=== PATIENT | male | born 1955 | race Caucasian/White ===

== ENCOUNTER → 2021-07-16 10:10 | Outpatient (CLI) | payer MEDICARE, SELFPAY ==
--- NOTE | ~2021-07-16 | XR_ITS ---
XR lumbar spine 2-3V DATE: 07/16/2021 10:46 INDICATION: Low back pain TECHNIQUE: AP, lateral, coned lateral lumbosacral views COMPARISON: 03/12/2014 lumbar spine FINDINGS: Diffuse idiopathic skeletal hyperostosis of the thoracic spine. There is moderate degenerative disc disease with mild retrolisthesis at T12-L1. Moderate degenerative disc disease at L1-2. There is moderately severe degenerative disc disease at L2-3. There is mild degenerative disc disease at L3-4 and L4-5. There is degenerative change at the apophyseal joints with associated grade 1 anterolisthesis at L4-5 . No fracture or bone destruction of the lumbar spine is noted. The lumbar pedicles are intact. The sacroiliac joints are intact, with degenerative change. IMPRESSION: Degenerative changes of thoracic and lumbar spine Reviewed, dictated and finalized at location A. ARTIST
== END ==
PROVIDERS: PCP Family Medicine; Visit Provider Family Medicine
DX: M54.50 Low back pain, unspecified (principal)
CPT/HCPCS: 72100

== ENCOUNTER → 2022-04-04 13:00 | Outpatient (CLI) | payer MEDICARE, SELFPAY ==
--- NOTE | ~2022-04-04 | XR_ITS ---
EXAMINATION: XR ribs RT 2V w CXR 2V DATE: 04/04/2022 13:29 INDICATION: Fall TECHNIQUE: PA and lateral views of the chest and 3 views of the right ribs were obtained. COMPARISON: Chest radiograph dated 12/16/2018 FINDINGS: No rib fractures identified. Unchanged mild linear lingular atelectasis/scarring at the costophrenic angle at the left lung base. No other airspace opacities, pulmonary edema, pleural effusion or pneumo thorax. Cardiomediastinal silhouette is normal. There are bridging osteophytes at multiple levels in the spine, consistent with diffuse idiopathic skeletal hyperostosis (DISH). IMPRESSION: 1. No rib fracture or acute cardiopulmonary disease. Reviewed, dictated and finalized at location A.
--- NOTE | ~2022-04-04 | XR_ITS ---
XR shoulder RT min 2V 04/04/2022 13:29 Indication: Right shoulder pain after fall Procedure: 4 views right shoulder Comparison: No prior studies for comparison. Findings: No fracture, subluxation or dislocation. No significant soft tissue abnormality. Abnormalit y. There is mild osteoarthritis of the acromioclavicular joint. Impression: 1: No acute fracture. Reviewed, dictated and finalized at location A. Impression: 1: No acute fracture.
== END ==
PROVIDERS: PCP Family Medicine; Visit Provider Nurse Practitioner Family
DX: R07.81 Pleurodynia (principal); M25.511 Pain in right shoulder; W19.XXXA Unspecified fall, initial encounter
CPT/HCPCS: 71046; 71100; 73030

== ENCOUNTER 2023-04-17 10:12 | Outpatient (CLI) | payer MEDICARE, SELFPAY ==
--- NOTE | ~2023-04-17 | XR_ITS ---
EXAMINATION: XR wrist LT min 3V DATE: 04/17/2023 10:31 INDICATION: Left wrist pain and swelling. TECHNIQUE: 4 views of left wrist were obtained. COMPARISON: None. FINDINGS: There is palmar tilt of lunate, consistent with volar intercalated segmental instability (V LEXY). No fracture. There is moderate osteoarthritis of triscaphe joint and severe osteoarthritis of l unate-capitate joint, lunate-hamate joint, and first carpometacarpal joint. IMPRESSION: 1. Polyarticular osteoarthritis. Reviewed, dictated and finalized at location A.
== END 2023-04-17 10:13 | disposition home or self-care (01) ==
PROVIDERS: PCP Family Medicine; Visit Provider Physician Assistant
DX: M25.532 Pain in left wrist (principal); M15.9 Polyosteoarthritis, unspecified; Z87.39 Personal history of other diseases of the musculoskeletal system and connective tissue
CPT/HCPCS: 73110

== ENCOUNTER 2024-01-01 08:48 | Day surgery (SDC) | payer MEDICARE, SELFPAY ==
[2023-12-17 15:13] VITALS: BMI 38.1
[2024-01-01 09:13] VITALS: BP 140/83; PULSE 96; RESP 18; TEMP 36.4; O2SAT 94; BMI 37.4
[2024-01-01] MEDS: LACTATED RINGERS 1,000 ML 150 ML IV CONT (09:43)
--- NOTE | 2024-01-01 10:04 | PM.HPGS ---
History of Present Illness History of Present Illness Consent: Risks, benefits, and alternatives have been discussed and questions answered. Patient agrees to proceed with procedure. Chief complaint: History of Colon Polyps Narrative: Maximo Barajas Jr. is a 68 year old male presents for screening colonoscopy. Patient has a very distant history of colon polyps. Colonoscopy 7 years ago was unremarkable. Patient presents today for follow-up exam. Patient reports his current weight appetite bowel movements are normal. He has had no bleeding. Family history noncontributory. Review of Systems Review of Systems: All systems reviewed & are unremarkable except as noted in HPI and below PMFSH Past Medical History Medical History (Updated 01/01/24 @ 10:06 by Cuba Aiken MD) BPH loc w urin obs/LUTS Gout History of stress test Left sided sciatica Surgical History Surgical History History of hernia repair History of knee surgery Family History Family History Father Acute myocardial infarction Other Family history of cardiovascular disease Social History Social History Smoking status: Never smoker Second hand tobacco smoke exposure: No Alcohol intake: current Drinks per week: 6 Substance use: never Substance use type: does not use Lack of Transportation: No Lack of Food: Never True Current Housing: I Have Housing Concerned About Future Housing: No Difficulty Paying Gas/Electric Bills: No Difficulty Paying for Meds: No Currently Unemployed: No Education: Trade/Vocational Certificate Difficulty w/ Childcare or Family Care: No Living arrangements: with family Occupation/Education: retired Gender identity (if verbalized by the patient): Male Sexual Orientation (if Verbalized by the Patient): Straight or Heterosexual Spiritual care concerns: No Meds Home Medications and Allergies Home Medications Medication Instructions Recorded Confirmed Type terbinafine HCl 250 mg tablet 250 mg PO DAILY #7 tabs 07/02/23 01/01/24 Rx warfarin 10 mg tablet 10 mg PO DAILY #90 tabs 07/31/23 01/01/24 Rx nystatin 100,000 unit/gram topical 1 applic topical TID #30 grams 08/14/23 01/01/24 Rx powder tadalafil 20 mg tablet (Cialis) 20 mg PO DAILY PRN sexual activity 12/01/23 01/01/24 Rx #30 tabs tamsulosin 0.4 mg capsule 0.8 mg PO DAILY #180 caps 12/01/23 01/01/24 Rx Vitamin B-6 1 tab-cap PO DIRECTED 12/18/23 01/01/24 History Allergies Allergy/AdvReac Type Severity Reaction Status Date / Time codeine Allergy Unknown Unknown Verified 01/01/24 09:12 Penicillins Allergy Unknown Unknown Verified 01/01/24 09:12 Vital Signs Vital Signs - 24 hr 01/01/24 09:13 Temperature 97.6 F Pulse Rate 96 Respiratory Rate 18 Blood Pressure 140/83 Pulse Oximetry 94 Oxygen Delivery Room Air Exam Narrative: Physical exam reveals patient alert. Vital signs stable. HEENT exam is unremarkable. Patient is anicteric. Lungs are clear to auscultation and to percussion is without murmur or extra sounds. Abdomen bowel sounds are present soft nontender with no organomegaly. Digital external rectal exam normal. Assessment and Plan Assessment and plan (1) Screen for colon cancer: Code(s): Z12.11 - Encounter for screening for malignant neoplasm of colon Status: Acute Assessment and Plan: Patient presents for screening colonoscopy. He has a very distant history of colon polyps. Further recommendations may be given after endoscopy.
[2024-01-01 10:25] VITALS: BP 107/67; PULSE 69; RESP 12; O2SAT 95
[2024-01-01 10:36] VITALS: BP 111/68; PULSE 76; RESP 12; O2SAT 99
[2024-01-01 10:49] VITALS: BP 117/80; PULSE 67; RESP 14; O2SAT 97
--- NOTE | 2024-01-01 10:53 | WPDANESPN ---
Anes - Prog Note Post-Op Date/Time: 01/01/24 10:53 Cardiovascular status: normal Respiratory status: normal Airway patency: baseline Mental status: baseline Post-Op hydration status: normal Vital Signs: Last Vital Signs Temp 36.4 C 01/01/24 09:13 Pulse 67 01/01/24 10:49 Resp 14 01/01/24 10:49 BP 117/80 01/01/24 10:49 Pulse Ox 97 01/01/24 10:49 O2 Del Method Room Air 01/01/24 10:49 Pain Score (VAS): 0/10 I/O: Intake & Output 12/31/23 01/01/24 01/01/24 23:59 07:59 15:59 Intake Total 0 Balance 0 Patient Feedback: Patient satisfied with anesthetic care.
--- NOTE | 2024-01-01 11:19 | WPDANESEPPF ---
Anes - Initial Pre Proc Eval Procedure: Operation Date: 01/01/24 10:30 Proposed Procedures p Diagnostic Colonoscopy - Cuba Aiken MD Date/Time: 01/01/24 11:19 Surgeon: Cuba Aiken MD Pre Op Diagnosis: History of Colon Polyps Patient Data Age: 68 Gender: M Height: 1.83 m Weight: 125.1 kg Last Vital Signs Temp 36.4 C 01/01/24 09:13 Pulse 67 01/01/24 10:49 Resp 14 01/01/24 10:49 BP 117/80 01/01/24 10:49 Pulse Ox 97 01/01/24 10:49 O2 Del Method Room Air 01/01/24 10:49 Allergies Allergy/AdvReac Type Severity Reaction Status Date / Time codeine Allergy Unknown Unknown Verified 01/01/24 09:12 Penicillins Allergy Unknown Unknown Verified 01/01/24 09:12 Home Medications Medication Instructions Recorded Confirmed Type terbinafine HCl 250 mg tablet 250 mg PO DAILY #7 tabs 07/02/23 01/01/24 Rx warfarin 10 mg tablet 10 mg PO DAILY #90 tabs 07/31/23 01/01/24 Rx nystatin 100,000 unit/gram topical 1 applic topical TID #30 grams 08/14/23 01/01/24 Rx powder tadalafil 20 mg tablet (Cialis) 20 mg PO DAILY PRN sexual activity 12/01/23 01/01/24 Rx #30 tabs tamsulosin 0.4 mg capsule 0.8 mg PO DAILY #180 caps 12/01/23 01/01/24 Rx Vitamin B-6 1 tab-cap PO DIRECTED 12/18/23 01/01/24 History Patient hx anesthesia problems: none Family hx anesthesia problems: none Results Review: All pre-operative results and documents have been reviewed as part of the pre-operative evaluation. [facility] Past Medical History Medical History BPH loc w urin obs/LUTS Gout History of stress test Left sided sciatica Surgical History Surgical History History of hernia repair History of knee surgery Family History Family History Father Acute myocardial infarction Other Family history of cardiovascular disease Social History Social History Smoking status: Never smoker Second hand tobacco smoke exposure: No Alcohol intake: current Drinks per week: 6 Substance use: never Substance use type: does not use Lack of Transportation: No Lack of Food: Never True Current Housing: I Have Housing Concerned About Future Housing: No Difficulty Paying Gas/Electric Bills: No Difficulty Paying for Meds: No Currently Unemployed: No Education: Trade/Vocational Certificate Difficulty w/ Childcare or Family Care: No Living arrangements: with family Occupation/Education: retired Gender identity (if verbalized by the patient): Male Sexual Orientation (if Verbalized by the Patient): Straight or Heterosexual Spiritual care concerns: No Anes - Eval Final PreProcedure Day of Procedure 01/01/24 11:19 Patient weight: obese Heart: regular rate and rhythm Lungs: clear to auscultation Airway: Mallampati scale class II Neurological: alert and oriented Last oral intake: >/= 8 hours ASA classification: III Emergent: no Anesthetic plan: proceed Anesthesia type and monitoring: general GIVS and standard monitoring Results Review: All pre-operative results and documents have been reviewed as part of the pre-operative evaluation. Informed Consent: The patient's anesthetic plan and its attendant risks and benefits were discussed with the patient/family/POA. Questions were solicited and answers provided to the satisfaction of the patient/family/POA.
== END 2024-01-01 11:15 | disposition home or self-care (01) ==
PROVIDERS: PCP Family Medicine; Visit Provider Internal Medicine Gastroenterology
PROC: 0DJD8ZZ Inspection of Lower Intestinal Tract, Via Natural or Artificial Opening Endoscopic (ICD-10-PCS; CPT 45378; principal; 2024-01-01 10:30)
DX: Z86.010 Personal history of colon polyps (principal); K57.30 Diverticulosis of large intestine without perforation or abscess without bleeding; K64.8 Other hemorrhoids
CPT/HCPCS: G0105

== ENCOUNTER 2025-02-18 16:18 | Emergency (ER) | payer MEDICARE, SELFPAY ==
--- NOTE | ~2025-02-18 | US_ITS ---
RIGHT LOWER EXTREMITY VENOUS ULTRASOUND Ordering provider: Teagan Riley PA-C History: . calf pain, hx dvt . Comparison: None. FINDINGS: --COMMON FEMORAL: Patent and free of thrombus. Normal compressibility, phasic flow and augmentation. --PROXIMAL SUPERFICIAL FEMORAL: Patent and free of thrombus. Normal compressibility, phasic flow and augmentation. --DISTAL SUPERFICIAL FEMORAL: Patent and free of thrombus. Normal compressibility, phasic flow and au gmentation. --POPLITEAL: Patent and free of thrombus. Normal compressibility, phasic flow and augmentation. --POSTERIOR TIBIAL: Patent and free of thrombus. Normal compressibility, phasic flow and augmentation . IMPRESSION: Negative right lower extremity venous US. No deep vein thrombosis. Reviewed, dictated and finalized at location A.
[2025-02-18 16:43] VITALS: BP 107/70; PULSE 87; RESP 20; TEMP 36.5; O2SAT 98
--- NOTE | 2025-02-18 18:21 | ED_ITS ---
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 Patient states over the past couple days he has noticed a and achiness to his right calf that is worse with ambulation. Denies edema. He reports history of DVTs in that extremity is concerned he may have developed a DVT. He is currently on 10 mg of warfarin which he is compliant with. His last INR was 2.0 on 01/15/24. He denies chest pain or dyspnea. GENERAL: Well-appearing, well-nourished, and in no acute distress. HEAD: Normocephalic, atraumatic. CHEST: Clear to auscultation. ?No respiratory distress. 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 Pain with palpation of the calf with lower is no overlying skin changes. No edema. DP pulse 2 +. Sensation intact. Extremity is pink, warm and dry. HEART: Regular rate and rhythm.? NEURO: ?Alert and oriented x3. Patient screened in triage and initial orders placed.? ?Additional care and disposition to be based upon?diagnostic testing and treatment. <Teagan Riley PA-C - Last Filed: 02/18/25 18:24> History of Present Illness HPI Narrative: Agree with MSE. Additionally the patient has been having muscle cramps in his calf at night. <Kermit Jha MD - Last Filed: 02/18/25 19:19> Related Data Home Medications: Home Medications ?Medication ?Instructions ?Recorded ?Confirmed ?Last Taken ?Type Vitamin B-6 1 tab-cap PO DIRECTED 12/18/23 02/01/25 Unknown History <Teagan Riley PA-C - Last Filed: 02/18/25 18:24> Allergies/Adverse Reactions: Allergies Allergy/AdvReac Type Severity Reaction Status Date / Time codeine Allergy Unknown Unknown Verified 02/18/25 16:19 Penicillins Allergy Unknown Unknown Verified 02/18/25 16:19 <ARELY Pascual Last Filed: 02/18/25 18:24> [facility] Past Medical History Medical History: Medical History BPH loc w urin obs/LUTS History of stress test Gout Left sided sciatica <ARELY Pascual Last Filed: 02/18/25 18:24> Surgical History Surgical History: Surgical History History of hernia repair History of knee surgery <ARELY Pascual Last Filed: 02/18/25 18:24> Family History Family History: Family History Father Acute myocardial infarction Other Family history of cardiovascular disease <ARELY Pascual Last Filed: 02/18/25 18:24> Social History Social History: Social History Smoking status: Never smoker Second hand tobacco smoke exposure: No Alcohol intake: current Drinks per week: 6 Substance use: never Substance use type: does not use Lack of Transportation: No Lack of Food: Never True Current Housing: I Have Housing Concerned About Future Housing: No Difficulty Paying Gas/Electric Bills: No Difficulty Paying for Meds: No Currently Unemployed: No Education: Trade/Vocational Certificate Difficulty w/ Childcare or Family Care: No Living arrangements: with family Occupation/Education: retired Gender identity (if verbalized by the patient): Male Sexual Orientation (if Verbalized by the Patient): Straight or Heterosexual Spiritual care concerns: No <ARELY Pascual Last Filed: 02/18/25 18:24> Exam Narrative: APPEARANCE: No apparent distress. Head: atraumatic. EYES: EOMI, NOSE: Atraumatic NECK: Trachea midline RESPIRATORY: No increased rate of breathing CARDIOVASCULAR: RRR, ABDOMINAL: Non-distended MUSCULOSKELETAl: No obvious deformities NEURO: Alert. Moving 4/4 extremities SKIN:: Warm, dry. Normal color PSYCHIATRIC: Normal affect <Kermit Jha MD - Last Filed: 02/18/25 19:19> Course Vital Signs Vital signs: Vital Signs Temperature 97.7 F 02/18/25 16:43 Pulse Rate 87 02/18/25 16:43 Respiratory Rate 20 02/18/25 16:43 Blood Pressure 107/70 02/18/25 16:43 Pulse Oximetry 98 02/18/25 16:43 Oxygen Delivery Room Air 02/18/25 16:43 Temperature 97.7 F 02/18/25 16:43 Pulse Rate 87 02/18/25 16:43 Respiratory Rate 20 02/18/25 16:43 Blood Pressure 107/70 02/18/25 16:43 Pulse Oximetry 98 02/18/25 16:43 Oxygen Delivery Room Air 02/18/25 16:43 <Teagan Riley PA-C - Last Filed: 02/18/25 18:24> Vital Signs Temperature 97.7 F 02/18/25 16:43 Pulse Rate 87 02/18/25 16:43 Respiratory Rate 20 02/18/25 16:43 Blood Pressure 107/70 02/18/25 16:43 Pulse Oximetry 98 02/18/25 16:43 Oxygen Delivery Room Air 02/18/25 16:43 Temperature 97.7 F 02/18/25 16:43 Pulse Rate 87 02/18/25 16:43 Respiratory Rate 20 02/18/25 16:43 Blood Pressure 107/70 02/18/25 16:43 Pulse Oximetry 98 02/18/25 16:43 Oxygen Delivery Room Air 02/18/25 16:43 <Kermit Jha MD - Last Filed: 02/18/25 19:19> MDM - Extremity Injury (Lower) MDM Narrative Medical decision making narrative: -Course: 69-year-old male presenting with right calf pain. He is concerned about DVT although he is on Coumadin his INR has been consistent over many months. Patient has been having cramps at night this is likely residual muscle soreness. Physical exam is unremarkable. Compartments are soft. Pulses are strong. Foot is warm without edema. No signs of infection. Will be discharged home. -DDX includes but is not limited to: DVT, muscle cramp, infection, hematoma <Kermit Jha MD - Last Filed: 02/18/25 19:19> Discharge Plan Discharge Clinical Impression: Calf pain <Teagan Riley PA-C - Last Filed: 02/18/25 18:24> Patient Disposition: Home <Teagan Riley PA-C - Last Filed: 02/18/25 18:24> Condition: Stable <ARELY Pascual Last Filed: 02/18/25 18:24> Instructions: Antibiotic Form, Muscle Strain (DC) <ARELY Pascual Last Filed: 02/18/25 18:24> Additional Instructions: You were seen in the emergency department for calf pain. This is likely muscle soreness from your muscle cramps. Please use Tylenol as needed. Please follow-up your primary care physician. Develop any new or worsening symptoms to return to the ED. <Teagan Riley PA-C - Last Filed: 02/18/25 18:24> Patient Language: Slovenian <ARELY Pascual Last Filed: 02/18/25 18:24> Prescriptions: No Action tadalafil [Cialis] 20 mg tablet 20 mg PO DAILY PRN (Reason: sexual activity) Qty: 30 0RF Rx Instructions: administer approximately 30min before sexual activity; do not use more than 1 dose per 24hrs nystatin 100,000 unit/gram ointment 1 applic topical BID 14 Days Qty: 30 1RF cyclobenzaprine 10 mg tablet 10 mg PO DAILY PRN (Reason: muscle spasm) Qty: 90 0RF warfarin 10 mg tablet 10 mg PO DAILY Qty: 90 1RF tamsulosin 0.4 mg capsule 0.8 mg PO DAILY Qty: 180 2RF colchicine 0.6 mg tablet 0.3 mg PO .COMPLEX Qty: 30 2RF Rx Instructions: 0.3 mg orally; Day 1: Take 2 tablets orally followed by 1 more tab 1 hour later. Then take 1 tablet daily Vitamin B-6 1 tab-cap PO DIRECTED <Teagan Riley PA-C - Last Filed: 02/18/25 18:24> Follow-up/Referrals: Golden Cha MD [Primary Care Provider] - <Teagan Riley PA-C - Last Filed: 02/18/25 18:24>
[2025-02-18 19:40] VITALS: BP 116/76; PULSE 76; RESP 20; TEMP 36.6; O2SAT 100
== END 2025-02-18 19:40 | disposition home or self-care (01) ==
PROVIDERS: Emergency Provider Emergency Medicine; PCP Family Medicine
DX: M79.662 Pain in left lower leg (principal); Z79.01 Long term (current) use of anticoagulants; Z86.718 Personal history of other venous thrombosis and embolism
CPT/HCPCS: 93971; 99284